=== PATIENT | male | born 1995 | race Caucasian/White ===

== ENCOUNTER 2017-07-05 11:24 | Emergency (ER) | payer OTHER ==
[2017-07-05 11:33] VITALS: BP 135/75; PULSE 76; TEMP 98; BMI 34.4
--- NOTE | 2017-07-05 11:56 | PDOC ---
History of Present Illness - General Chief Complaint: Sore Throat Stated Complaint: THROAT PAIN Time Seen by Provider: 07/05/17 11:30 - History of Present Illness Initial Comments: 07/05/17 11:51 CHIEF COMPLAINT: throat pain HISTORY OF PRESENT ILLNESS: 21 yo M with hx of strep presents to [facility] with throat pain since this morning. Patient reports waking up and feeling " like I had strep, but then I noticed I had a little blood in my throat." Patient denies any fever, chills, vomiting, diarrhea, cough, runny nose, body aches, headaches, abdominal pain. No recent travel or sick contacts. PAST MEDICAL HISTORY: Denies past medical history FAMILY HISTORY: Denies SOCIAL HISTORY: Denies tobacco, alcohol, illicit drug use. SURGICAL HISTORY: Denies ALLERGIES: No known drug allergies REVIEW OF SYSTEMS General/Constitutional: Denies fever or chills. Denies weakness. HEENT: Throat pain since this morning. Denies change in vision. Denies ear pain or discharge. Cardiovascular: Denies chest pain or shortness of breath. Respiratory: Denies cough, wheezing, or hemoptysis. Gastrointestinal: Denies nausea, vomiting, diarrhea or constipation. Denies rectal bleeding. Genitourinary: Denies dysuria, frequency, or change in urination. Musculoskeletal: Denies joint or muscle swelling or pain. Denies neck or back pain. Skin: Denies rash. PHYSICAL EXAM General Appearance: Well-appearing, appropriately dressed. No apparent distress. HEENT: Tonsils 2+ b/l, minimal erythema and exudate to R tonsil. EOMI, PERRLA. No conjunctival pallor. No photophobia, scleral icterus. Respiratory/Chest: Lungs CTAB. Cardiovascular: RRR. S1, S2. Lymphatic: No adenopathy, tenderness. Musculoskeletal/Extremities: Normal inspection. FROM of all extremities, normal capillary refill. Pelvis Stable. No CVA tenderness. No tenderness to extremities, pedal edema, swelling, erythema or deformity. Integumentary: Appropriate color, dry, warm. 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 Fully oriented, alert. Appropriate mood/affect. Motor strength 5/5. No appreciable EOM palsy, facial droop or sensory deficit. 07/05/17 11:57 07/05/17 12:17 Past History - Past Medical History Allergies/Adverse Reactions: Allergies Allergy/AdvReac Type Severity Reaction Status Date / Time No Known Allergies Allergy Verified 07/05/17 11:29 Home Medications: Ambulatory Orders No Home Medications 0 dose .ROUTE UTDICT 09/18/12 Ofloxacin 0.3% Ophth Soln [Ocuflox -] 2 drop OS Q2H #5 ml 09/18/12 Ibuprofen 600 mg PO TID PRN #21 tablet 07/05/17 Other medical history: denies - Suicide/Smoking/Psychosocial Hx Smoking Status: No Smoking History: Never smoked Number of Cigarettes Smoked Daily: 0 Information on smoking cessation initiated: No Hx Alcohol Use: Yes (occasional) Drug/Substance Use Hx: No Substance Use Type: None *Physical Exam - Vital Signs Last Vital Signs Temp Pulse Resp BP Pulse Ox 98 F 76 18 135/75 100 07/05/17 11:27 07/05/17 11:27 07/05/17 11:27 07/05/17 11:27 07/05/17 11:27 Medical Decision Making - Medical Decision Making 07/05/17 12:04 21 yo M with hx of strep presents to [facility] with throat pain since this morning. VSS -rapid strep 07/05/17 12:17 -strep negative Will treat symptomatically - advised patient of signs and symptoms for return to ER; patient and father verbalized understanding and agrees to plan. *DC/Admit/Observation/Transfer Diagnosis at time of Disposition: Viral pharyngitis - Discharge Dispostion Disposition: HOME Condition at time of disposition: Stable Admit: No - Prescriptions Prescriptions: Ibuprofen 600 mg PO TID PRN #21 tablet PRN Reason: Pain - Referrals Referrals: David Sharma MD [Primary Care Provider] - - Patient Instructions Printed Discharge Instructions: DI for Viral Pharyngitis Additional Instructions: Please take medication as prescribed. You may use the chloraseptic spray for pain relief as discussed. Follow up with your primary care doctor next week if symptoms persist. If you develop any new or worsening symptoms, including fever , chills, vomiting, or diarrhea, please return to the ER.
== END 2017-07-05 12:26 | disposition home or self-care (01) ==
LOC: JERFT 11:24
DX: J02.8 Acute pharyngitis due to other specified organisms (principal); B97.89 Other viral agents as the cause of diseases classified elsewhere
CPT/HCPCS: 87070; 87430; 99281-25

== ENCOUNTER 2018-04-06 10:13 | Emergency (ER) | payer OTHER ==
[2018-04-06 10:22] VITALS: BP 157/96; PULSE 87; TEMP 98.5; BMI 26.4
[2018-04-06] MEDS ORDERED: KETOROLAC TROMETHAMINE 60 MG/2 ML VIAL IM ONE (11:34)
[2018-04-06] MEDS ORDERED: KETOROLAC TROMETHAMINE 60 MG/2 ML VIAL ONE (11:37)
--- NOTE | 2018-04-06 12:02 | PDOC ---
History of Present Illness - General Chief Complaint: Pain, Acute Stated Complaint: LT SHOULDER/BACK PAIN - History of Present Illness Initial Comments: 22-year-old male without any comorbidities presents for 40 minutes of left- sided upper back pain. He states he sat in his computer chair to play video games and felt pain in his upper affect. He points to the area of the levator scapula as the area of his discomfort his pain is exacerbated with motion relieved with rest and free of radiation. 04/06/18 11:49 Past History - Past Medical History Allergies/Adverse Reactions: Allergies Allergy/AdvReac Type Severity Reaction Status Date / Time No Known Allergies Allergy Verified 04/06/18 10:19 Home Medications: Ambulatory Orders Cyclobenzaprine HCl [Flexeril 10 mg] 10 mg PO HS PRN #10 tablet 04/06/18 COPD: No Other medical history: DENIES. - Suicide/Smoking/Psychosocial Hx Smoking Status: No Smoking History: Never smoked Number of Cigarettes Smoked Daily: 0 Hx Alcohol Use: Yes (occasional) Drug/Substance Use Hx: No Substance Use Type: None Review of Systems - Review of Systems Musculoskeletal: Yes: See HPI, Back Pain All Other Systems: Reviewed and Negative *Physical Exam - Vital Signs Last Vital Signs Temp Pulse Resp BP Pulse Ox 98.5 F 87 18 157/96 96 04/06/18 10:19 04/06/18 10:19 04/06/18 10:19 04/06/18 10:19 04/06/18 10:19 - Physical Exam Comments: Has decreased range of motion in the cervical spine. 5 out of 5 strength in bilateral upper extremities without any gross sensorimotor deficits negative Spurling maneuver tenderness about the left levator scapula no other areas of tenderness he is neurovascularly intact free of any gross sensorimotor deficits. 04/06/18 11:49 ED Treatment Course - Medications Given in the ED: ED Medications Discontinued Medications Generic Name Dose Route Start Last Admin Trade Name Freq PRN Reason Stop Dose Admin Ketorolac Tromethamine 60 mg 04/06/18 11:34 04/06/18 11:41 Toradol Injection - IM 04/06/18 11:35 60 mg ONCE ONE Administration Medical Decision Making - Medical Decision Making Levator scapula strain I'll treat him with a dose of Toradol in the emergency room and send him home with Flexeril he can follow-up with spine surgery for further evaluation and treatment options 04/06/18 11:50 *DC/Admit/Observation/Transfer Diagnosis at time of Disposition: Cervical spine pain - Discharge Dispostion Disposition: HOME Condition at time of disposition: Stable Decision to Admit order: No - Referrals Referrals: David Sharma MD [Primary Care Provider] - Ren Williamson MD [Staff Physician] - - Patient Instructions Printed Discharge Instructions: DI for Cervical Muscle Strain Additional Instructions: You have a strain of a muscle in your upper back and neck. I prescribed few a muscle relaxer which should help with your pain. On top of that you may take Motrin as directed. Return to the emergency room should her symptoms worsen or go unresolved. Other than that he can follow-up with spine surgery in 1-2 days for further evaluation and treatment options. - Post Discharge Activity
== END 2018-04-06 12:17 | disposition home or self-care (01) ==
LOC: JERFT 10:13
PROC: 3E0233Z Introduction of Anti-inflammatory into Muscle, Percutaneous Approach (ICD-10-PCS; principal; 2018-04-06)
DX: M54.2 Cervicalgia (principal)
CPT/HCPCS: 96372; 99281-25

== ENCOUNTER 2018-11-20 10:44 | Emergency (ER) | payer OTHER ==
[2018-11-20 10:54] VITALS: BP 132/70; PULSE 105; TEMP 97.3; BMI 33.6
--- NOTE | 2018-11-20 11:39 | PDOC ---
History of Present Illness - General Chief Complaint: Cold Symptoms Stated Complaint: CONGESTION Time Seen by Provider: 11/20/18 11:18 History Source: Patient Exam Limitations: No Limitations - History of Present Illness Initial Comments: 11/20/18 11:34 HISTORY OF PRESENT ILLNESS: 23-year-old male with 8-10 days of sore throat, dry mildly productive cough, body aches. Patient works at [employer] at [place] is surrounded by children all day many of whom been experiencing similar symptoms. No recent travel. PAST MEDICAL HISTORY: Denies past medical history SURGICAL HISTORY: Denies ALLERGIES: No known drug allergies REVIEW OF SYSTEMS General/Constitutional: Denies fever/chills. Denies weakness, weight change. HEENT: Denies change in vision. Denies ear pain or discharge. +sore throat. Cardiovascular: Denies chest pain or shortness of breath. Respiratory: Moist productive cough. Denies wheezing, or hemoptysis. Gastrointestinal: Denies nausea, vomiting, diarrhea or constipation. Denies rectal bleeding. Genitourinary: Denies dysuria, frequency, or change in urination. Musculoskeletal: Denies neck or back pain. Skin and breasts: Denies rash or easy bruising. Neurologic: Denies headache, vertigo, loss of consciousness, or loss of sensation. Psychiatric: Denies depression or anxiety. Endocrine: Denies increased thirst. Denies abnormal weight change. Hematologic/Lymphatic: Denies anemia, easy bleeding, or history of blood clots. Allergic/Immunologic: Denies hives or skin allergy. Denies latex allergy. PHYSICAL EXAM General Appearance: Well-appearing, appropriately dressed. No apparent distress , no intoxication. HEENT: EOMI, PERRLA, normal voice, TMs retracted bilaterally. No conjunctival pallor. No photophobia, scleral icterus. Oropharynx erythematous without lesions or exudate. Cobblestoning noted in the posterior. No nasal discharge present. Neck: Supple. Trachea midline. No tenderness, rigidity, carotid bruit, stridor , or thyromegaly. Nontender anterior cervical lymphadenopathy present. Respiratory/Chest: Lungs CTAB. No shortness of breath, chest tenderness, respiratory distress, accessory muscle use. No crackles, rales, rhonchi, stridor , wheezing, dullness Cardiovascular: RRR. S1, S2. No JVD, murmur, bradycardia, tachycardia. Vascular Pulses: Dorsalis-Pedis (R): 2+, Dorsalis-Pedis (L): 2+ Gastrointestinal/Abdominal: Normal bowel sounds. Abdomen soft, non-distended. No tenderness or rebound tenderness. No organomegaly, pulsatile mass, guarding, hernia, hepatomegaly, splenomegaly. Musculoskeletal/Extremities: Normal inspection. FROM of all extremities, normal capillary refill. Pelvis Stable. No CVA tenderness. No tenderness to extremities, pedal edema, swelling, erythema or deformity. Integumentary: Appropriate color, dry, warm. 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 Fully oriented, alert. Appropriate mood/affect. Motor strength 5/5. No appreciable EOM palsy, facial droop or sensory deficit. Past History - Past Medical History Allergies/Adverse Reactions: Allergies Allergy/AdvReac Type Severity Reaction Status Date / Time No Known Allergies Allergy Verified 11/20/18 10:55 Home Medications: Ambulatory Orders Benzonatate [Tessalon Pearls -] 200 mg PO TID #42 cap 11/20/18 COPD: No - Suicide/Smoking/Psychosocial Hx Smoking Status: No Smoking History: Unknown if ever smoked Have you smoked in the past 12 months: No Number of Cigarettes Smoked Daily: 0 Information on smoking cessation initiated: No Hx Alcohol Use: No Drug/Substance Use Hx: No Substance Use Type: None *Physical Exam - Vital Signs Last Vital Signs Temp Pulse Resp BP Pulse Ox 97.3 F L 105 H 16 132/70 97 11/20/18 10:45 11/20/18 10:45 11/20/18 10:45 11/20/18 10:45 11/20/18 10:45 Moderate Sedation - Procedure Monitoring Vital Signs: Procedure Monitoring Vital Signs Temperature 97.3 F L 11/20/18 10:45 Pulse Rate 105 H 11/20/18 10:45 Respiratory Rate 16 11/20/18 10:45 Blood Pressure 132/70 11/20/18 10:45 O2 Sat by Pulse Oximetry (%) 97 11/20/18 10:45 Medical Decision Making - Medical Decision Making 11/20/18 11:51 A/P: 23-year-old man with upper respiratory infection for 8-10 days Supportive treatment discussed with the patient Discharge home I discussed the physical exam findings, ancillary test results and final diagnoses with the patient. I answered all of the patient's questions. The patient was satisfied with the care received and felt comfortable with the discharge plan and treatment plan. The patient will call their primary care physician within 24 hours to arrange follow-up and will return to the Emergency Department with any new, persistent or worsening symptoms. *DC/Admit/Observation/Transfer Diagnosis at time of Disposition: Nasopharyngitis - Discharge Dispostion Disposition: HOME Condition at time of disposition: Stable Decision to Admit order: No - Prescriptions Prescriptions: Benzonatate [Tessalon Pearls -] 200 mg PO TID #42 cap - Referrals - Patient Instructions Printed Discharge Instructions: DI for Viral Upper Respiratory Infection -- Adult Additional Instructions: Rest, drink lots of fluids: Teas, water, soups, Pedialyte Saltwater gargles Steamy showers/seem to face break up mucus Avoid contact with others until fevers and cough resolved Lots of handwashing and good hygiene Continue [id number] medications for symptomatic relief Tylenol or Motrin for fever and pain Followup with private physician in one to 2 days as needed Return to emergency department for worsened symptoms, fevers, dehydration - Post Discharge Activity Forms/Work/School Notes: Back to Work
== END 2018-11-20 11:42 | disposition home or self-care (01) ==
LOC: JERFT 10:44
DX: J00 Acute nasopharyngitis [common cold] (principal)
CPT/HCPCS: 99281-25

== ENCOUNTER 2019-01-03 08:22 | Emergency (ER) | payer OTHER ==
[2019-01-03 08:56] VITALS: TEMP 98.2; BMI 33.0
[2019-01-03] MEDS ORDERED: ONDANSETRON 4 MG/2 ML VIAL ONE (08:57)
--- NOTE | 2019-01-03 09:03 | PDOC ---
History of Present Illness - General Chief Complaint: Vomiting Blood Stated Complaint: VOMITING BLOOD Time Seen by Provider: 01/03/19 08:58 History Source: Patient Exam Limitations: Clinical Condition - History of Present Illness Initial Comments: 01/03/19 09:10 Patient with no significant PMHx present with complains of 2 episodes of vomiting blood and right nose bleeding upon wake this AM. Patient report feeling of something in the throat. Patient report h/o nosebleeds when weather is very humid or hot. Denies cough, SOB or chest pains. report intermittent epigastric discomfort. Denies fever, chills, dizziness, BAKER Timing/Duration: 4-6 hours Past History - Past Medical History Allergies/Adverse Reactions: Allergies Allergy/AdvReac Type Severity Reaction Status Date / Time No Known Allergies Allergy Verified 01/03/19 08:50 Home Medications: Ambulatory Orders Oxymetazoline HCl [Afrin] 1 spray NS BID PRN 3 Days #1 spray 01/03/19 COPD: No - Immunization History Immunization Up to Date: Yes - Suicide/Smoking/Psychosocial Hx Smoking Status: No Smoking History: Never smoked Have you smoked in the past 12 months: No Number of Cigarettes Smoked Daily: 0 Information on smoking cessation initiated: No Hx Alcohol Use: No Drug/Substance Use Hx: No Substance Use Type: None Review of Systems - Review of Systems Able to Perform ROS?: Yes Is the patient limited Macedonian proficient: No Constitutional: No: Chills, Fever, Malaise HEENTM: Yes: Symptoms Reported, See HPI, Other (right nasal bleeding). No: Eye Pain, Blurred Vision, Tearing, Recent change in vision, Double Vision, Cataracts , Ear Pain, Ocular Prothesis, Ear Discharge, Nose Pain, Nose Congestion, Tinnitus, Nose Bleeding, Hearing Loss, Throat Pain, Throat Swelling, Mouth Pain , Dental Problems, Difficulty Swallowing, Mouth Swelling Respiratory: Yes: Symptoms reported, See HPI, Hemoptysis. No: Cough, Orthopnea , Shortness of Breath, SOB with Exertion, Wheezing Cardiac (ROS): No: Symptoms Reported, See HPI, Chest Pain, Edema, Irregular Heart Rate, Lightheadedness, Palpitations, Syncope, Chest Tightness, Other ABD/GI: Yes: See HPI, Nausea, Vomiting (2 episodes), Abdominal cramping ( epigastric). No: Abd. Pain w/ defecation, Blood Streaked Bowels, Constipated, Diarrhea, Difficulty Swallowing, Rectal Bleeding, Tarry Stools Integumentary: No: Bruising, Change in Color Hematologic/Lymphatic: Yes: See HPI. No: Anemia, Blood Clots, Easy Bleeding, Bleeding Diathesis All Other Systems: Reviewed and Negative *Physical Exam - Vital Signs Last Vital Signs Temp Pulse Resp BP Pulse Ox 98.2 F 102 H 17 117/58 L 95 01/03/19 08:50 01/03/19 08:50 01/03/19 08:50 01/03/19 08:50 01/03/19 08:50 - Physical Exam Comments: 01/03/19 11:11 GENERAL: Well developed, well nourished. Awake and alert. No acute distress. HEENT: small amount of dried blood in right nostril. no active nasal bleeding. Normocephalic, atraumatic. PERRLA, EOMI. No conjunctival pallor. Sclera are non- icteric. Moist mucous membranes. Oropharynx is clear. NECK: Supple. Full ROM. CARDIOVASCULAR: Regular rate and rhythm. No murmurs, rubs, or gallops. Distal pulses are 2+ and symmetric. PULMONARY: No evidence of respiratory distress. Lungs clear to auscultation bilaterally. No wheezing, rales or rhonchi. ABDOMINAL: Soft. Non-tender. Non-distended. No rebound or guarding. No organomegaly. Normoactive bowel sounds. MUSCULOSKELETAL Normal range of motion at all joints. EXTREMITIES: No cyanosis. No clubbing. No edema. No calf tenderness. SKIN: Warm and dry. Normal capillary refill. No rashes. No jaundice. NEUROLOGICAL: Alert, awake, appropriate. Gait is normal without ataxia. PSYCHIATRIC: Cooperative. Good eye contact. Appropriate mood General Appearance: Yes: Nourished, Appropriately Dressed. No: Apparent Distress ED Treatment Course - LABORATORY CBC & Chemistry Diagram: 01/03/19 09:40 01/03/19 09:40 Medical Decision Making - Medical Decision Making 01/03/19 09:13 Patient with no significant PMHx present with complains of 2 episodes of vomiting blood and right nose bleeding upon wake this AM. Patient report feeling of something in the throat. Report h/o nosebleeds with dry or humid environment. Denies cough, SOB or chest pains. report intermittent epigastric discomfort. Denies fever, chills, dizziness, BAKER Exam significant for small dried blood in right nostril with no acute nasal bleed. lungs CTAB. normal cardio and abdominal exam. CBC,CMP,PT/PTT/fibrinogen labs ordered. CXR ordered. patient on court recording monitor. Will consider neck and chest CT based on labs and imaging results 01/03/19 10:56 CBC, CMP cardiac profile and coag profile unremarkable. EKG shows NSR. chest x- ray shows no acute pathology. patient report feeling of ball in throat and difficulty with swallow. CT of neck ordered to r/o acute neck pathology 01/03/19 12:[address] Matos who report no acute pathology of CT scan of neck. Patient asymptomatic and stable for d/c on afrin to help with nasal bleeds with ENT and GI follow-up *DC/Admit/Observation/Transfer Diagnosis at time of Disposition: Epistaxis not due to trauma, Hemoptysis - Discharge Dispostion Disposition: HOME Condition at time of disposition: Stable Decision to Admit order: No - Prescriptions Prescriptions: Oxymetazoline HCl [Afrin] 1 spray NS BID PRN 3 Days #1 spray PRN Reason: nosebleed - Referrals Referrals: Rashid Sharma MD [Primary Care Provider] - Sam Roa MD [Staff Physician] - Tommy Hilliard MD [Staff Physician] - - Patient Instructions Printed Discharge Instructions: Nosebleed Additional Instructions: Your labs and chest x-rays was normal. Your neck CAT scan was normal as well. vomiting blood likely from nosebleed going down the throat. use prescribed nasal spray as needed for nosebleed. Follow-up with referred ENT Dr. Roa for nosebleeds and foreign body sensation in throat. Follow-up with GI dr. Dr. Hilliard if vomiting blood continues - Post Discharge Activity
[2019-01-03 09:50] LABS: BASO % 0.6 % (0-2.0); EOS % 1.1 % (0-4.5); HEMATOCRIT 41.9 % (35.4-49); HEMOGLOBIN 14.3 GM/dL (11.7-16.9); LYMPH % 31.7 % (8-40); MCH 31.3 pg (25.7-33.7); MCHC 34.3 g/dl (32.0-35.9); MEAN CELL VOLUME 91.4 fl (80-96); MEAN PLT VOLUME 9.2 fl (7.5-11.1); MONO % 9.9 % (3.8-10.2); NEUT % 56.7 % (42.8-82.8); PLATELET COUNT 189 K/MM3 (134-434); RBC 4.58 M/mm3 (4.00-5.60); RDW 13.7 % (11.9-15.9); WHITE BLOOD COUNT 4.4 K/mm3 (4.0-10.0)
[2019-01-03 09:55] LABS: INR 1.02 (0.83-1.09)
[2019-01-03] MEDS ORDERED: SODIUM CHLORIDE 1,000 ML IV STA (09:57)
[2019-01-03] MEDS ORDERED: ONDANSETRON 4 MG/2 ML VIAL IVPUSH ONE (09:57)
[2019-01-03 09:58] LABS: ACTIVATED PTT 34.1 SECONDS (25.2-36.5)
[2019-01-03 10:04] LABS: ALBUMIN 3.7 g/dl (3.4-5.0); ALK PHOS 83 U/L (45-117); ANION GAP 5 MMOL/L (8-16); BILIRUBIN,TOTAL 0.5 mg/dL (0.2-1); BLOOD UREA NITROGEN 12 mg/dL (7-18); CALCIUM 7.9 mg/dL (8.5-10.1); CHLORIDE 109 mmol/L (98-107); CO2 29 mmol/L (21-32); CREATININE 0.8 mg/dL (0.55-1.3); GLUCOSE,RANDOM 119 mg/dL (74-106); POTASSIUM 4.2 mmol/L (3.5-5.1); SGOT/AST 20 U/L (15-37); SGPT/ALT 42 U/L (13-61); SODIUM 143 mmol/L (136-145); TOT PROT 6.6 g/dl (6.4-8.2)
[2019-01-03 12:54] VITALS: BP 120/75; PULSE 89
--- NOTE | 2019-01-03 17:56 | EKG ---
Test Reason : Blood Pressure : / mmHG Vent. Rate : 080 BPM Atrial Rate : 080 BPM P-R Int : 156 ms QRS Dur : 086 ms QT Int : 366 ms P-R-T Axes : 053 030 036 degrees QTc Int : 422 ms NORMAL SINUS RHYTHM POSSIBLE LEFT ATRIAL ENLARGEMENT BORDERLINE ECG WHEN COMPARED WITH ECG OF 02-OCT-2006 17:31, PREVIOUS ECG IS PRESENT Confirmed by SHALA CAMPO MD ([id number]) on 01/03/2019 5:56:41 PM Referred By: Confirmed By:SHALA CAMPO MD
== END 2019-01-03 12:59 | disposition home or self-care (01) ==
LOC: JER 08:22
PROC: 3E033GC Introduction of Other Therapeutic Substance into Peripheral Vein, Percutaneous Approach (ICD-10-PCS; principal; 2019-01-03)
DX: R04.2 Hemoptysis (principal); R04.0 Epistaxis
CPT/HCPCS: 36415; 71045-TC-FY; 72125-TC; 80053; 82550; 84484; 85025; 85384; 85610; 85730; 86850; 86900; 86901; 93005; 93010; 96374; 99284-25; J7030

== ENCOUNTER 2019-11-22 18:48 | Emergency (ER) | payer OTHER ==
[2019-11-22 18:56] VITALS: BP 158/70; PULSE 98; TEMP 98.3; BMI 33.6
--- NOTE | 2019-11-22 18:57 | PDOC ---
Rapid Medical Evaluation Medical Evaluation: Allergies Allergy/AdvReac Type Severity Reaction Status Date / Time No Known Allergies Allergy Verified 01/03/19 08:50 I have performed a brief in-person evaluation of this patient. The patient presents with a chief complaint of: productive cough x3-4 days; denies fever Pertinent physical exam findings: In nad, lungs clear I have ordered the following:cxr The patient will proceed to the ED for further evaluation. 11/22/19 18:55
--- NOTE | 2019-11-22 21:28 | PDOC ---
History of Present Illness - General Chief Complaint: Cold Symptoms Stated Complaint: COUGH Time Seen by Provider: 11/22/19 18:54 - History of Present Illness Initial Comments: 11/22/19 21:26 24-year-old male with cough and runny nose x3 days without systemic symptoms Past History - Past Medical History Allergies/Adverse Reactions: Allergies Allergy/AdvReac Type Severity Reaction Status Date / Time No Known Allergies Allergy Verified 11/22/19 18:56 Home Medications: Ambulatory Orders Oxymetazoline HCl [Afrin] 1 spray NS BID PRN 3 Days #1 spray 01/03/19 Budesonide [Rhinocort Allergy] 1 spray NS ONCE #1 spray.pump 11/22/19 Cetirizine HCl/Pseudoephedrine [Zyrtec-D Tablet] 1 each PO DAILY #30 tab.er.12h 11/22/19 COPD: No - Immunization History Immunization Up to Date: Yes - Psycho Social/Smoking Cessation Hx Smoking Status: No Smoking History: Never smoked Have you smoked in the past 12 months: No Number of Cigarettes Smoked Daily: 0 Hx Alcohol Use: No Drug/Substance Use Hx: No Substance Use Type: None Review of Systems - Review of Systems Constitutional: No: Fever HEENTM: Yes: Nose Congestion Respiratory: Yes: Cough *Physical Exam - Vital Signs Last Vital Signs Temp Pulse Resp BP Pulse Ox 98.3 F 98 H 18 158/70 99 11/22/19 18:54 11/22/19 18:54 11/22/19 18:54 11/22/19 18:54 11/22/19 18:54 - Physical Exam 11/22/19 21:27 GENERAL: The patient is awake, alert, and fully oriented, in no acute distress. HEAD: Normal with no signs of trauma. EYES: sclera anicteric, conjunctiva clear. ENT: Ears normal tympanic membranes normal oropharynx clear uvula midline NECK: Normal range of motion LUNGS: Breath sounds equal, clear to auscultation bilaterally. No wheezes, and no crackles. HEART: S1 and S2 without murmur, rub or gallop. ABDOMEN: Soft, nontender, normoactive bowel sounds. No guarding, no rebound. No masses. EXTREMITIES: Normal range of motion, no edema. No clubbing or cyanosis. No cords, erythema, or tenderness. NEUROLOGICAL: Cranial nerves II through XII grossly intact. PSYCH: Normal mood, normal affect. SKIN: Warm, Dry, normal turgor, no rashes or lesions noted. Medical Decision Making - Medical Decision Making 11/22/19 21:27 Negative chest x-ray benign examination antihistamine with decongestant and steroid nasal spray for seasonal allergies Discharge - Discharge Information Problems reviewed: Yes Clinical Impression/Diagnosis: Allergic rhinitis Condition: Stable Disposition: HOME - Admission No - Additional Discharge Information Prescriptions: Budesonide [Rhinocort Allergy] 1 spray NS ONCE #1 spray.pump Cetirizine HCl/Pseudoephedrine [Zyrtec-D Tablet] 1 each PO DAILY #30 tab.er.12h - Follow up/Referral Referrals: David Sharma MD [Primary Care Provider] - - Patient Discharge Instructions Additional Instructions: Return to the emergency room for worsening symptoms and without fail follow-up with your primary care physician in 1 to 2 days for further evaluation and treatment options. Please take the antihistamine decongestant and use the nasal spray as directed for relief of your symptoms - Post Discharge Activity Work/Back to School Note: Back to Work
== END 2019-11-22 21:39 | disposition home or self-care (01) ==
LOC: JERFT 18:48
DX: J30.9 Allergic rhinitis, unspecified (principal)
CPT/HCPCS: 71046-TC-FY; 99283-25

== ENCOUNTER 2019-11-28 10:17 | Emergency (ER) | payer OTHER ==
[2019-11-28 10:22] VITALS: BP 114/76; PULSE 81; TEMP 97; BMI 33.6
--- NOTE | 2019-11-28 11:01 | PDOC ---
History of Present Illness - General Chief Complaint: Injury Stated Complaint: FALL Time Seen by Provider: 11/28/19 10:38 History Source: Patient Exam Limitations: No Limitations - History of Present Illness Initial Comments: 11/28/19 10:56 [id number]-year-old healthy male complains of right third, fourth and fifth toe pain since 8 AM this morning. Patient did not have his eyeglasses on and accidentally slammed his right foot against a wall, striking the ground however denies head strike, LOC, headache, neck pain, abdominal pain, chest pain or any other injury. Took Naprosyn approximately 2 hours ago. ROS: Right third, fourth and fifth toe pain PE: GENERAL: well-appearing, NAD HEAD: NCAT EYES: Pupils equal, round and reactive to light, sclera anicteric, conjunctiva clear ENT: pharynx: no erythema, no exudate, uvula midline NECK: supple CHEST: nontender RESP: clear, no w/r/r CARDIO: rrr, no m/g/r ABD: +BS, soft, nontender, non distended BACK: no midline spinal ttp, no CVAT EXTREMITIES: Normal range of motion, no edema NEUROLOGICAL: Normal speech, normal gait SKIN: Warm, Dry Is this a multiple visit Asthma Patient?: No Past History - Past Medical History Allergies/Adverse Reactions: Allergies Allergy/AdvReac Type Severity Reaction Status Date / Time No Known Allergies Allergy Verified 11/28/19 10:22 Home Medications: Ambulatory Orders Oxymetazoline HCl [Afrin] 1 spray NS BID PRN 3 Days #1 spray 01/03/19 Budesonide [Rhinocort Allergy] 1 spray NS ONCE #1 spray.pump 11/22/19 Cetirizine HCl/Pseudoephedrine [Zyrtec-D Tablet] 1 each PO DAILY #30 tab.er.12h 11/22/19 COPD: No - Immunization History Immunization Up to Date: Yes - Psycho Social/Smoking Cessation Hx Smoking Status: No Smoking History: Current some day smoker Have you smoked in the past 12 months: No Number of Cigarettes Smoked Daily: 0 Information on smoking cessation initiated: No Hx Alcohol Use: No Drug/Substance Use Hx: No Substance Use Type: None *Physical Exam - Vital Signs Last Vital Signs Temp Pulse Resp BP Pulse Ox 97 F L 81 18 114/76 99 11/28/19 10:19 11/28/19 10:19 11/28/19 10:19 11/28/19 10:19 11/28/19 10:19 ED Treatment Course - RADIOLOGY Radiology Studies Ordered: Category Date Time Status TOE(S) RIGHT [RAD] Stat Radiology 11/28/19 10:53 Ordered Medical Decision Making - Medical Decision Making 11/28/19 10:58 24-year-old male denies past medical history complaining of right third fourth and fifth toe pain since 8 AM this morning after accidentally striking the wall this morning as he was not wearing his corrective eye glasses. xray of right toes 11/28/19 11:16 X-ray of right toes negative for acute fracture Discharge Discharge - Discharge Information Problems reviewed: Yes Clinical Impression/Diagnosis: Toe pain, right Clinical Impression/Diagnosis: (Ruled Out): Chronic toe pain, bilateral Condition: Stable Disposition: HOME - Admission No - Follow up/Referral Referrals: David Sharma MD [Primary Care Provider] - - Patient Discharge Instructions Additional Instructions: Alternate between acetaminophen and ibuprofen every 6 hours as needed for pain If pain persists, increased swelling or any concerns return to ED Follow-up with your doctor within 1 week - Post Discharge Activity
== END 2019-11-28 11:23 | disposition home or self-care (01) ==
LOC: JER 10:17 → JERFT 10:17
DX: S99.821A Other specified injuries of right foot, initial encounter (principal); M79.674 Pain in right toe(s); W22.01XA Walked into wall, initial encounter; Y93.01 Activity, walking, marching and hiking; Y92.093 Driveway of other non-institutional residence as the place of occurrence of the external cause; Y99.8 Other external cause status; Z72.0 Tobacco use
CPT/HCPCS: 73660-TC-FY; 99283-25